=== PATIENT | female | born 1930 | race Caucasian/White ===

== ENCOUNTER → 2016-04-26 | Outpatient (CLI) | payer MEDICARE | LOC: RAD 10:20 | PROVIDERS: ATTEND Family Medicine | DX: R55 Syncope and collapse (principal) | CPT/HCPCS: 93880 ==

== ENCOUNTER → 2016-04-30 | Outpatient (CLI) | payer MEDICARE | LOC: RT 13:25 | PROVIDERS: ATTEND Family Medicine | DX: I49.1 Atrial premature depolarization (principal); I49.3 Ventricular premature depolarization | CPT/HCPCS: 93270 ==